=== PATIENT | male | born 1985 | race Caucasian/White ===

== ENCOUNTER 2018-05-05 17:40 | Emergency (ER) | payer MEDICAID, OTHER ==
[~2018-05-05] VITALS: Ht 172.7 cm; Wt 84.0 kg
[2018-05-05 17:56] VITALS: BP 141/85
[2018-05-05] MEDS ORDERED: AMOXICILLIN 500 MG CAPSULE PO ONE (19:15)
== END 2018-05-05 19:58 | disposition home or self-care (01) ==
LOC: ER 17:40
DX: K02.9 Dental caries, unspecified (principal); R60.0 Localized edema; F17.200 Nicotine dependence, unspecified, uncomplicated; Z98.890 Other specified postprocedural states
CPT/HCPCS: 99283

== ENCOUNTER 2018-11-15 13:36 | Emergency (ER) | payer MEDICAID ==
[~2018-11-15] VITALS: Ht 177.8 cm; Wt 80.0 kg
[2018-11-15] MEDS ORDERED: ACETAMINOPHEN WITH CODEINE 300/30MG TABLET PO ONE (17:15)
[2018-11-15 17:21] VITALS: BP 123/56
== END 2018-11-15 17:45 | disposition home or self-care (01) ==
LOC: ER 13:36
DX: S02.5XXA Fracture of tooth (traumatic), initial encounter for closed fracture (principal); K04.7 Periapical abscess without sinus; X58.XXXA Exposure to other specified factors, initial encounter; Y93.89 Activity, other specified; Y92.89 Other specified places as the place of occurrence of the external cause; F17.210 Nicotine dependence, cigarettes, uncomplicated
CPT/HCPCS: 99282; 99283

== ENCOUNTER 2018-12-14 13:24 | Emergency (ER) | payer MEDICAID ==
[~2018-12-14] VITALS: Ht 177.8 cm; Wt 81.1 kg
[2018-12-14 14:49] VITALS: BP 117/84
== END 2018-12-14 14:49 | disposition home or self-care (01) ==
LOC: ER 13:24
DX: G58.8 Other specified mononeuropathies (principal); F17.200 Nicotine dependence, unspecified, uncomplicated
CPT/HCPCS: 99283

== ENCOUNTER 2019-02-13 10:58 | Emergency (ER) | payer MEDICAID ==
[~2019-02-13] VITALS: Ht 177.8 cm; Wt 81.8 kg
[2019-02-13 11:13] VITALS: BP 120/62
[2019-02-13] MEDS ORDERED: HYDROCODONE/ACETAMINOPHEN 5/325MG TABLET PO ONE (11:30)
[2019-02-13] MEDS ORDERED: ONDANSETRON 4MG ODT PO ONE (11:30)
== END 2019-02-13 14:05 | disposition home or self-care (01) ==
LOC: ER 11:47
DX: S20.212A Contusion of left front wall of thorax, initial encounter (principal); F17.200 Nicotine dependence, unspecified, uncomplicated; Z98.890 Other specified postprocedural states; W22.8XXA Striking against or struck by other objects, initial encounter; Y93.89 Activity, other specified; Y92.89 Other specified places as the place of occurrence of the external cause; Y99.8 Other external cause status
CPT/HCPCS: 71101; 99283; Q0162

== ENCOUNTER 2019-07-19 14:11 | Emergency (ER) | payer SELFPAY ==
[~2019-07-19] VITALS: Ht 177.8 cm; Wt 86.0 kg
[2019-07-19 15:20] VITALS: BP 136/51
== END 2019-07-19 15:25 | disposition home or self-care (01) ==
LOC: ER 14:11
DX: H66.91 Otitis media, unspecified, right ear (principal)
CPT/HCPCS: 99283